=== PATIENT | female | born 1995 | race Caucasian/White ===

== ENCOUNTER 2018-05-11 14:54 | Inpatient (IN) | END 2018-05-14 16:19 | disposition home or self-care (01) | DRG 854 ==

== ENCOUNTER 2018-06-06 12:47 | Inpatient (IN) | END 2018-06-10 14:30 | disposition home or self-care (01) | DRG 357 ==

== ENCOUNTER 2018-07-13 11:30 | Emergency (ER) | payer OTHER ==
[~2018-07-13] VITALS: Wt 70.0 kg
[~2018-07-13 11:30] MED LIST: CIPR500T4 PO; HYDR-4011 PO; SECU150P2 SQ
[2018-07-13 11:35] VITALS: PULSE 94
--- NOTE | 2018-07-13 13:08 | ERD ---
ER Documentation Chief Complaint Chief Complaint S/P I&D ABCESS JUN 06 HAS OPEN WOUND NEEDS TO HAVE CHECK HPI 22-year-old female, with history of left gluteal abscess, status post post eveline gical incision and drainage on 06/06/[address] Escobar; presents to the emergency department, complaining of acute onset of yellowish discharge. The wound is healing by secondary intention, the patient has a nurse that performs wound care and packing every other day. She denies fevers, no chills, she is not taking any antibiotics at this time. ROS All systems reviewed and are negative except as per history of present illness. Medications Home Meds Active Scripts Ibuprofen* (Motrin*) 400 Mg Tab, 400 MG PO Q6H PRN for PAIN AND OR ELEVATED TEMP, #15 TAB Prov:JUAN JOSE LOVE MD 07/13/18 Fluconazole* (Diflucan*) 150 Mg Tablet, 150 MG PO ONCE, #1 TAB Prov:JUAN JOSE LOVE MD 07/13/18 Sulfamethoxazole/Trimethoprim* (Bactrim Ds* Tablet) 1 Each Tablet, 1 TAB PO BID, #14 TAB Prov:JUAN JOSE LOVE MD 07/13/18 Cephalexin* (Keflex*) 500 Mg Capsule, 500 MG PO BID for 7 Days, CAP Prov:JUAN JOSE LOVE MD 07/13/18 Ciprofloxacin Hcl* (Ciprofloxacin Hcl*) 500 Mg Tablet, 500 MG PO BID, #20 TAB Prov:WEBBISABELA VGamal MANAGER CHEMICAL 06/10/18 Hydrocodone/Acetaminophen ([place] 5-325 Tablet) 1 Each Tablet, 1 EACH PO Q6 for pain, #15 TAB Prov:ISABELA WEBB VGamal MANAGER CHEMICAL 06/09/18 Reported Medications Secukinumab (Cosentyx Pen) 150 Mg/1 Ml Pen.injctr, 150 MG SQ Q30D 06/05/18 Allergies Allergies: Coded Allergies: No Known Allergies (Verified Allergy, Unknown, 06/05/18) PMhx/Soc History of Surgery: Yes (removal of infected abscess April 2018) Anesthesia Reaction: No Hx Neurological Disorder: No Hx Respiratory Disorders: Yes (Asthma ) Hx Cardiac Disorders: No Hx Psychiatric Problems: No Hx Miscellaneous Medical Probl: No Hx Alcohol Use: Yes (socially ) Hx Substance Use: No Hx Tobacco Use: No FmHx Family History: No diabetes, No coronary disease Physical Exam Vitals Vital Signs Date Temp Pulse Resp B/P (MAP) Pulse Ox O2 O2 Flow FiO2 Time Delivery Rate 07/13/18 98.0 18 132/78 99 13:54 (96) 07/13/18 98.1 94 18 139/99 99 11:35 (112) Physical Exam Const: No acute distress Head: Atraumatic Eyes: Normal Conjunctiva ENT: Normal External Ears, Nose and Mouth. Neck: Full range of motion. No meningismus. Resp: Clear to auscultation bilaterally Cardio: Regular rate and rhythm, no murmurs Abd: Soft, non tender, non distended. Normal bowel sounds Skin: Left gluteal area: With wound clean and 90% closed, superficial packing in place, yellowish non-malodorous discharge noticed. No peripheral erythema, edema, tenderness or fluctuance. No petechiae or rashes Back: No midline or flank tenderness Ext: No cyanosis, or edema Neur: Awake and alert Psych: Normal Mood and Affect Procedures/MDM Status post incision and drainage approximately 1 month ago ago. Adequate pain control, no fever, no chills, acute yellowish non-malodorous discharge. The patient was evaluated for infection and neurovascular compromise. The wound was clean and irrigated with normal saline and packing applied. Patient is stable, the wound shows early signs of local infection, however, no e vidence of systemic compromise, Medication adherence reinforced. some side effects of prescribed medications (headache, rash, nausea, vomiting, diarrhea, drowsiness, habituation, bleeding, hypertension, interactions with other medications) were reviewed. The patient was instructed to follow up with the primary care provider in the next 48h. If symptoms persist, worsen or new symptoms develop, then patient should return to the ED immediately. Instructions explained and given directly by me to the patient with acknowledgment and demonstrated understanding. Disclaimer: Inadvertent spelling and grammatical errors are likely due to EHR/dictation software use and do not reflect on the overall quality of patient care. Also, please note that the electronic time recorded on this note does not necessarily reflect the actual time of the patient encounter. Departure Diagnosis: Primary Impression: Status post incision and drainage Additional Impression: Infected wound Condition: Stable Additional Instructions: Thank you very much for allowing us to participate in your care. Your health and safety is our top priority at [facility]. Call your primary care doctor TOMORROW for an appointment during the next 2-4 days and bring all the information and medications prescribed. Have prescriptions filled and follow precisely the directions on the label. If the symptoms get worse and your provider is unavailable, return to the Emergency Department immediately. JUAN JOSE LOVE MD Jul 13, 2018 13:08
[2018-07-13] MEDS ORDERED: CEPH-443 PO (13:37)
[2018-07-13] MEDS ORDERED: FLUC150T PO (13:37)
[2018-07-13] MEDS ORDERED: SULF1TAB31 PO (13:37)
[2018-07-13] MEDS ORDERED: IBUP-1561 PO (13:37)
[2018-07-13 13:54] VITALS: BP 132/78; RESP 18
== END 2018-07-13 13:55 | disposition home or self-care (01) ==
LOC: FTE 11:30
DX: S31.829A Unspecified open wound of left buttock, initial encounter (principal); J45.909 Unspecified asthma, uncomplicated; L08.9 Local infection of the skin and subcutaneous tissue, unspecified; X58.XXXA Exposure to other specified factors, initial encounter; Y92.9 Unspecified place or not applicable; Z48.817 Encounter for surgical aftercare following surgery on the skin and subcutaneous tissue
CPT/HCPCS: 99283

== ENCOUNTER 2018-09-02 09:28 | Day surgery (SDC) | payer OTHER ==
[~2018-09-02] VITALS: Ht 167.6 cm; Wt 85.3 kg
[2018-09-02] VITALS (25 sets, daily range): BP systolic 91–147; BP diastolic 54–97; PULSE 68–138; RESP 11–62; Ht 167.6 cm; Wt 85.3 kg
[~2018-09-02 09:28] MED LIST changes: +CEPH-443 PO; +FLUC150T PO; +IBUP-1561 PO; +SULF1TAB31 PO
[2018-09-02] MEDS ORDERED: CIPR500T4 PO (10:01)
[2018-09-02] MEDS ORDERED: HYDR-4011 PO (10:02)
[2018-09-02] MEDS ORDERED: [UNRECOGNIZED DRUG - CODE] PO (10:04)
[2018-09-02] MEDS ORDERED: BUPIVACAINE 0.5% (SDV) 30 ML INJ ONE (11:16)
[2018-09-02] MEDS ORDERED: LIDOCAINE 1% (MPF) 30 ML INJ ONE (11:16)
[2018-09-02] MEDS ORDERED: BUPIVACAINE 0.5%/EPI (SDV) 30 ML INJ ONE (11:16)
[2018-09-02] MEDS ORDERED: BUPIVACAINE 0.25% (MPF) 30 ML INJ ONE (11:16)
--- NOTE | 2018-09-02 11:26 | PREAC ---
Date/Time of Note Date/Time of Note DATE: 09/02/18 TIME: 11:25 Anesthesia Eval and Record Evaluation Time Pre-Procedure Interview DATE: 09/02/18 TIME: 11:25 Age 23 Sex female NPO: 8 hrs Preoperative diagnosis anal fistula Planned procedure proctosigmoidoscopy, seton placement Past Medical History Past Medical History: Includes Pulm: Asthma GI: Obesity Surgery & Anesthesia Issues No known issue Meds Anticoagulation: No Beta Angelito within 24 hr: No Reason Beta Angelito not given: Pt. not on B-Angelito Reported Medications Norethindrone-E.estradiol-Iron (Pqiisu-Nfzjqd-He 1-0.02(11)-75) 1 Each Tab.chew, 1 EACH PO DAILY, TAB.CHEW 09/02/18 Hydrocodone/Acetaminophen ([place] 5-325 Tablet) 1 Each Tablet, 1 EACH PO BID, TAB 09/02/18 Ciprofloxacin Hcl* (Ciprofloxacin Hcl*) 500 Mg Tablet, 500 MG PO BID, #14 TAB 09/02/18 Discontinued Reported Medications Secukinumab (Cosentyx Pen) 150 Mg/1 Ml Pen.injctr, 150 MG SQ Q30D 06/05/18 Discontinued Scripts Ibuprofen* (Motrin*) 400 Mg Tab, 400 MG PO Q6H PRN for PAIN AND OR ELEVATED TEMP, #15 TAB Prov:JUAN JOSE LOVE MD 07/13/18 Fluconazole* (Diflucan*) 150 Mg Tablet, 150 MG PO ONCE, #1 TAB Prov:JUAN JOSE LOVE MD 07/13/18 Sulfamethoxazole/Trimethoprim* (Bactrim Ds* Tablet) 1 Each Tablet, 1 TAB PO BID, #14 TAB Prov:JUAN JOSE LOVE MD 07/13/18 Cephalexin* (Keflex*) 500 Mg Capsule, 500 MG PO BID for 7 Days, CAP Prov:JUAN JOSE LOVE MD 07/13/18 Ciprofloxacin Hcl* (Ciprofloxacin Hcl*) 500 Mg Tablet, 500 MG PO BID, #20 TAB Prov:WEBBRAINEA V. RN INTEGRITY 06/10/18 Hydrocodone/Acetaminophen ([place] 5-325 Tablet) 1 Each Tablet, 1 EACH PO Q6 for pain, #15 TAB Prov:WEBB,ISABELA V. RN INTEGRITY 12/20/18 Meds reviewed: Yes Allergies Coded Allergies: No Known Allergies (Verified Allergy, Unknown, 09/02/18) Allergies Reviewed: Yes Labs/Studies Labs Reviewed: Reviewed by anesthesiologist test: Negative Pre-procedure Exam Last vitals Vital Signs Date Temp Pulse Resp B/P (MAP) Pulse Ox O2 O2 Flow FiO2 Time Delivery Rate 09/02/18 98.8 80 16 121/71 98 Room Air 10:48 (88) Airway: Adequate mouth opening, Adequate thyromental dist Mallampati: Mallampati II Teeth: Normal Lung: Normal Heart: Normal ASA Physical Status ASA physical status: 2 Emergency: None Planned Anesthetic General/MAC: LMA Planned Pain Management Parenteral pain med Pre-operative Attestations Prior to commencing anesthesia and surgery, the patient was re-evaluated, there was verification of: *The patient's identity *The results of appropriate recent lab work and preoperative vital signs *The above evaluation not changing prior to induction *Anesthetic plan, risk benefits, alternative and complications discussed with patient/family; questions answered; patient/family understands, accepts and wishes to proceed. HERMAN WATERS Sep 02, 2018 11:26
[2018-09-02] MEDS ORDERED: PROPOFOL 100 ML ONE (11:31)
--- NOTE | 2018-09-02 11:46 | HPN ---
Date/Time of Note Date/Time of Note DATE: 09/02/18 TIME: 11:46 Interval H&P Admission Note Pt. seen H&P reviewed: No system changes PARK BAER MD Sep 02, 2018 11:46
[2018-09-02] MEDS ORDERED: ONDANSETRON 4 MG INJ ONE (12:00)
[2018-09-02] MEDS ORDERED: DEXAMETHASONE 4 MG/ML 5 ML INJ ONE (12:00)
--- NOTE | 2018-09-02 12:39 | SIPON ---
Date/Time of Note Date/Time of Note DATE: 09/02/18 TIME: 12:38 Operative Report Preoperative Diagnosis Anal fistula Postoperative Diagnosis (same) Operation/Procedure Performed Proctosigmoidoscopy Placement of draining seton Surgeon see signature line medical clerical assistant n/a Anesthesia: general Estimated blood loss: minimal Transfusion Required none Specimen Fistula contents Grafts/Implants none Complications none PARK BAER MD Sep 02, 2018 12:39
--- NOTE | 2018-09-02 12:54 | PAC ---
Date/Time of Note Date/Time of Note DATE: 09/02/18 TIME: 12:53 Post-Anesthesia Notes Post-Anesthesia Note Last documented vital signs Vital Signs Date Temp Pulse Resp B/P (MAP) Pulse Ox O2 O2 Flow FiO2 Time Delivery Rate 09/02/18 98.8 80 16 121/71 98 Room Air 1254 (88) Activity: WNL Respiratory function: WNL Cardiovascular function: WNL Mental status: Baseline Pain reasonably controlled: Yes Hydration appropriate: Yes Nausea/Vomiting absent: Yes HERMAN WATERS Sep 02, 2018 12:54
[2018-09-02] MEDS ORDERED: EPHEDrine SULFATE 50 MG/5 ML SYG IV PRN (13:00)
[2018-09-02] MEDS ORDERED: MEPERIDINE 25 MG INJ IV PRN (13:00)
[2018-09-02] MEDS ORDERED: METOCLOPRAMIDE 10 MG INJ IV PRN (13:00)
[2018-09-02] MEDS ORDERED: HYDROmorphONE 1 MG/5 ML IV SYRINGE IV PRN ×3 (13:00)
[2018-09-02] MEDS ORDERED: ONDANSETRON 4 MG INJ IV PRN (13:00)
[2018-09-02] MEDS ORDERED: DIPHENHYDRAMINE 50 MG INJ IV PRN (13:00)
[2018-09-02] MEDS ORDERED: OXYCODONE/ACETAMINOPHEN (5/325) TAB PO PRN ×2 (13:00)
[2018-09-02] MEDS ORDERED: ALBUTEROL 0.083% (NEB) 2.5 MG/3 ML AMP HHN PRN (13:00)
[2018-09-02] MEDS ORDERED: LABETALOL HCL 20MG INJ IV PRN (13:00)
[2018-09-02] MEDS ORDERED: FENTAnyl 50 MCG/ML VIAL IV PRN ×3 (13:00)
[2018-09-02] MEDS ORDERED: hydrALAzine 20 MG INJ IV PRN (13:00)
[2018-09-02] MEDS ORDERED: KETOROLAC 30 MG INJ IV PRN (13:00)
[2018-09-02] MEDS ORDERED: ALBUTEROL 0.5% (NEB) 2.5 MG/0.5 ML AMP ONE (13:23)
[2018-09-02] MEDS ORDERED: MIDAZOLAM 1 MG/ML 2 ML INJ ONE (13:24)
--- NOTE | 2018-09-02 13:46 | OPPN ---
Date/Time of Note Date/Time of Note DATE: 09/02/18 TIME: 13:41 Anesthesia Follow up Anesthesia Follow up Last documented vital signs Vital Signs Date Temp Pulse Resp B/P (MAP) Pulse Ox O2 O2 Flow FiO2 Time Delivery Rate 09/02/18 70 12 102/58 99 nc 2l 1340 (73) 09/02/18 98.0 12:53 Respiratory function: WNL Cardiovascular function: WNL Comments called to pacu for patient with difficulty breathing. combination of hyperventilation with laryngospasm/bronchospasm most likely the cause. O2 by mask with albuterol treatment initiated and versed 2 mg ivp given with improvement in respiratory effort and normalization of vital signs. currently patient resting comfortably in no distress, vss. will continue to monitor. HERMAN WATERS Sep 02, 2018 13:46
--- NOTE | 2018-09-02 13:46 | OPR ---
DATE OF OPERATION: 09/02/2018 PREOPERATIVE DIAGNOSIS: Anal fistula. POSTOPERATIVE DIAGNOSIS: Anal fistula. PROCEDURES PERFORMED: 1. Rigid proctosigmoidoscopy. 2. Placement of draining seton. SURGEON: Dr. Park Wei MD ANESTHESIA: General anesthetic with LMA. INDICATIONS FOR PROCEDURE: Ms. Em is a 23-year-old female who has undergone multiple perianal i ncisions and drainage due to a chronically draining wound. It was suspected she has a fistula in ano , but thus far the previous surgeries were unsuccessful in finding an internal offending origin. I r ecommended she undergo an examination under anesthesia with placement of draining Seton within her fi stula tract. Informed consent was obtained prior to the procedure. DESCRIPTION OF PROCEDURE: The patient was brought to the operating room, placed in supine position o n the operating table. Next, after successful administration of general anesthetic and placement of an LMA she was repositioned in the lithotomy position using Vinh stirrups. After surgical time-out, a digital rectal examination was performed using lubricated finger. This examination revealed an op ening in the external perianal skin and the left posterior quadrant. There were no masses within the patient's anal canal or rectum, but there was a small amount of scarring in the anterior anal canal. Next, a rigid proctosigmoidoscopy was performed to a distance of 12 cm from the anal verge and this revealed a normal appearing rectum. The proctoscope was removed without event. Next, the patient's perineum and perianal skin were prepped and draped in the usual sterile fashion. Following this, an anal block was performed using combination of 1% lidocaine without epinephrine an d 0.5% Marcaine with epinephrine. This 50/50% combination of local anesthetic was utilized in such a fashion as to infiltrate the subcutaneous tissue circumferentially at the anal verge as well as the skin surrounding the external opening of the fistula tract in the left posterior perianal skin. Next , the Hwang retractors were utilized to examine the patient's anal canal and distal rectum in more d etail. The only abnormality noted was a small amount of scarring and a tiny tag within the anterior anal canal. Next, with the Hwang retractor in place, hydrogen peroxide was injected within the exte rnal opening of the anal canal and the left posterior perianal skin but no obvious internal opening w as identified. Next, a malleable probe was then passed from the external opening in the perianal ski n. There was an obvious tract toward the anterior anal canal right with scarring that had been palpa zahra. With the malleable probe, it was clear that this was the internal source of the fistula tract as a small paper thin layer of epidermis overlying the tip of the fistula probe. Bovie electrocautery was used to divide the small thin skin thus opening the internal opening of the fistula tract. The f istula probe was then replaced with 2-vessel loops which were tied to themselves using 0 silk suture. These would function as draining setons. The malleable probe was obviously removed and the specime n was taken of the fistula tract using a curet spoon and sent off as a surgical specimen labeled fist stephani contents. Additional local anesthetic that is the combination of lidocaine and Marcaine was inje cted at the external opening and internal opening of the fistula tract and the procedure was complete . The Hwang retractor was removed and dry gauze were applied to the patient's perianal skin and sec ured with paper tape. Next, the patient was turned in the supine position in the operating room, anesthesia discontinued an d she was extubated without complication. The patient was then transferred to recovery in stable con dition. Following the procedure, the patient was given standard post-anorectal surgery convalesce ins tructions was instructed to follow up with Dr. Wei in 1 week. The patient was also given prescripti ons for Toradol and [place] for pain. Dictated By: PARK HOBBS/GREGORIA Conf#: [id number] DID#: [id number] CC: ELMO SCHWARTZ M.D.;*End*
[2018-09-02] MEDS ORDERED: IPRATROPIUM (NEB) 0.5 MG/2.5 ML AMP INH ONE (14:00)
[2018-09-02] MEDS ORDERED: MIDAZOLAM 1 MG/ML 2 ML INJ IV PRN (14:00)
[2018-09-02] MEDS ORDERED: DEXAMETHASONE 4 MG/ML 1 ML INJ ONE (15:34)
[2018-09-02] MEDS ORDERED: DEXAMETHASONE 4 MG/ML 1 ML INJ IV ONE (16:00)
[2018-09-02] MEDS ORDERED: DEXAMETHASONE 10 MG/ML 1 ML INJ IV ONE (17:00)
== END 2018-09-02 18:53 | disposition home or self-care (01) ==
LOC: SDS 09:28
PROVIDERS: ATTEND Colon & Rectal Surgery
DX: K60.3 Anal fistula (principal); J45.909 Unspecified asthma, uncomplicated
CPT/HCPCS: 45300; 46270; 84703; 88304; J1100; J1200; J2250; J2405; J3010; Z7512; Z7610

== ENCOUNTER 2018-12-01 14:20 | Day surgery (SDC) | payer OTHER ==
[2018-12-01] VITALS (18 sets, daily range): BP systolic 107–149; BP diastolic 64–95; PULSE 56–124; RESP 14–31; Ht 165.1 cm; Wt 87.2 kg
[~2018-12-01] VITALS: Ht 165.1 cm; Wt 87.2 kg
[~2018-12-01 14:20] MED LIST changes: +CEFAZOLIN 2 GM/50 ML (PMX) 50 ML IVPB SCH; -CEPH-443 PO; -FLUC150T PO; -IBUP-1561 PO; +Metronidazole 500 MG in NS 100 ML IVPB SCH; -SECU150P2 SQ; -SULF1TAB31 PO; +[UNRECOGNIZED DRUG - CODE] PO
[2018-12-01] MEDS ORDERED: DEXAMETHASONE 4 MG/ML 5 ML INJ IVPB ONE (14:21)
[2018-12-01] MEDS ORDERED: ONDANSETRON 4 MG INJ IV ONE (14:21)
[2018-12-01] MEDS: LACTATED RINGER'S 1,000 ML IV SCH ×2 (15:22→17:49)
--- NOTE | 2018-12-01 16:21 | PREAC ---
Date/Time of Note Date/Time of Note DATE: 12/01/18 TIME: 16: Anesthesia Eval and Record Evaluation Time Pre-Procedure Interview DATE: 12/01/18 TIME: 16:19 Age 23 Sex female NPO: 8 hrs Preoperative diagnosis anal fistula Planned procedure PROCTOSIGMOIDOSCOPY,ANAL FISTULOTOMY Past Medical History Past Medical History: Includes Pulm: Asthma GI: Obesity Surgery & Anesthesia Issues No known issue Meds Anticoagulation: No Beta Angelito within 24 hr: No Reason Beta Angelito not given: Pt. not on B-Angelito Reported Medications Norethindrone-E.estradiol-Iron (Bmcutc-Imycyu-Df 1-0.02(26)-75) 1 Each Tab.chew, 1 EACH PO DAILY, TAB.CHEW 09/02/18 Hydrocodone/Acetaminophen ([place] 5-325 Tablet) 1 Each Tablet, 1 EACH PO BID, TAB 09/02/18 Ciprofloxacin Hcl* (Ciprofloxacin Hcl*) 500 Mg Tablet, 500 MG PO BID, #14 TAB 09/02/18 Current Medications Cefazolin Sodium/ Dextrose 50 ml @ 100 mls/hr ONCE IVPB ; Start 12/01/18 at 10:00; Stop 12/01/18 at 18:00 Metronidazole 100 ml @ 100 mls/hr ONCE IVPB ; Start 12/01/18 at 10:00; Stop 12/01/18 at 18:00 Lactated Ringer's 1,000 ml @ 25 mls/hr Q24H IV Last administered on 12/01/18at 15:22; Admin Dose 25 MLS/HR; Start 12/01/18 at 15:00; Stop 12/03/18 at 06:59 Meds reviewed: Yes Allergies Coded Allergies: No Known Allergies (Verified Allergy, Unknown, 12/01/18) Allergies Reviewed: Yes Labs/Studies Labs Reviewed: Reviewed by anesthesiologist test: Negative Pre-procedure Exam Last vitals Vital Signs Date Temp Pulse Resp B/P (MAP) Pulse Ox O2 O2 Flow FiO2 Time Delivery Rate 12/01/18 97.6 95 16 110/65 99 Room Air 15:17 (80) Airway: Adequate mouth opening Mallampati: Mallampati I Teeth: Normal Lung: Normal Heart: Normal ASA Physical Status ASA physical status: 2 Emergency: None Planned Anesthetic General/MAC: ETT Pre-operative Attestations Prior to commencing anesthesia and surgery, the patient was re-evaluated, there was verification of: *The patient's identity *The results of appropriate recent lab work and preoperative vital signs *The above evaluation not changing prior to induction *Anesthetic plan, risk benefits, alternative and complications discussed with patient/family; questions answered; patient/family understands, accepts and wishes to proceed. CLAY TADEO Dec 01, 2018 16:21
[2018-12-01] MEDS ORDERED: PROPOFOL 20 ML ONE (16:28)
[2018-12-01] MEDS ORDERED: FENTAnyl 50 MCG/ML VIAL ONE ×2 (16:29)
[2018-12-01] MEDS ORDERED: BUPIVACAINE 0.5% (SDV) 30 ML INJ ONE (16:37)
[2018-12-01] MEDS ORDERED: LIDOCAINE 1%/EPI 30 ML INJ ONE (16:38)
[2018-12-01] MEDS ORDERED: CEFAZOLIN 1 GM INJ ONE (17:23)
[2018-12-01] MEDS ORDERED: LIDOCAINE 2% (SDV) 5 ML INJ ONE (17:23)
[2018-12-01] MEDS ORDERED: metroNIDAZOLE 500 MG/NS (PMX) 100 ML IVPB ONE (17:24)
[2018-12-01] MEDS ORDERED: ROCURONIUM 50 MG INJ ONE (17:24)
[2018-12-01] MEDS ORDERED: GLYCOPYRROLATE 0.4 MG INJ ONE (17:28)
[2018-12-01] MEDS ORDERED: NEOSTIGMINE 3 MG/3 ML SYRINGE ONE (17:28)
[2018-12-01] MEDS ORDERED: MEPERIDINE 25 MG INJ ONE (17:40)
--- NOTE | 2018-12-01 17:40 | PAC ---
Date/Time of Note Date/Time of Note DATE: 12/01/18 TIME: 17:40 Post-Anesthesia Notes Post-Anesthesia Note Last documented vital signs Vital Signs Date Temp Pulse Resp B/P (MAP) Pulse Ox O2 O2 Flow FiO2 Time Delivery Rate 12/01/18 97.6 95 16 110/65 99 Room Air 1740 (80) Activity: WNL Respiratory function: WNL Cardiovascular function: WNL Mental status: Baseline Pain reasonably controlled: Yes Hydration appropriate: Yes Nausea/Vomiting absent: Yes HERMAN WATERS Dec 01, 2018 17:40
[2018-12-01] MEDS ORDERED: MEPERIDINE 25 MG INJ IV PRN (18:00)
[2018-12-01] MEDS ORDERED: DIPHENHYDRAMINE 50 MG INJ IV PRN (18:00)
[2018-12-01] MEDS ORDERED: MIDAZOLAM 1 MG/ML 2 ML INJ IV PRN (18:00)
[2018-12-01] MEDS ORDERED: hydrALAzine 20 MG INJ IV PRN (18:00)
[2018-12-01] MEDS ORDERED: FENTAnyl 50 MCG/ML VIAL IV PRN ×3 (18:00)
[2018-12-01] MEDS ORDERED: KETOROLAC 30 MG INJ IV PRN (18:00)
[2018-12-01] MEDS ORDERED: HYDROmorphONE 1 MG/5 ML IV SYRINGE IV PRN ×3 (18:00)
[2018-12-01] MEDS ORDERED: OXYCODONE/ACETAMINOPHEN (5/325) TAB PO PRN ×2 (18:00)
[2018-12-01] MEDS ORDERED: ONDANSETRON 4 MG INJ IV PRN (18:00)
[2018-12-01] MEDS ORDERED: METOCLOPRAMIDE 10 MG INJ IV PRN (18:00)
[2018-12-01] MEDS ORDERED: ALBUTEROL 0.083% (NEB) 2.5 MG/3 ML AMP HHN PRN (18:00)
[2018-12-01] MEDS ORDERED: EPHEDrine 25 MG/5 ML SYG IV PRN (18:00)
[2018-12-01] MEDS ORDERED: LABETALOL HCL 20MG INJ IV PRN (18:00)
--- NOTE | 2018-12-01 18:45 | OPR ---
DATE OF OPERATION: 12/01/2018 PREPROCEDURE DIAGNOSIS: Ktlirmh-sj-fwp. POSTPROCEDURE DIAGNOSIS: Left anterior myfnexb-qh-lhn. PROCEDURES PERFORMED: 1. Fistulotomy with placement of Seton for a transsphincteric yysdsvs-fq-unp. 2. Rigid proctosigmoidoscopy. SURGEON: Park Wei MD. TYPE OF ANESTHESIA: General endotracheal anesthesia. INDICATIONS FOR PROCEDURE: Ms. Em is a 23-year-old female, who previously was found to have a f czmqkn-gh-vem that was previously treated with a fistulotomy and drainage of abscess and placement of draining Seton. She now presents for definitive treatment of her fistula. Informed consent was obt ained prior to the procedure. PROCEDURE IN DETAIL: The patient was brought to the operating room, and while on the transportation gurney, general endotracheal anesthesia was established. Next, the patient was repositioned in the p kaylin jackknife position on the operating room table. Following this, the patient's buttocks were tap ed apart using the standard technique. A Surgical timeout was performed and the patient received per ioperative antibiotics. Next, a digital rectal examination was performed using lubricated finger. T his revealed a draining Seton extending from the patient's distal anterior anal canal to the left lat eral perianal skin. There are no masses in the patient's distal rectum. Next, a rigid proctosigmoid oscopy was performed to a distance of 12 cm from the anal verge and this revealed a normal appearing rectum. The proctoscope was removed without event. Next, the patient's perineum and perianal skin were prepped and draped in the usual sterile fashion. Following this, an anal block was performed using combination of 1% lidocaine with epinephrine and 0 .5% Marcaine without epinephrine. This 50/50% combination local anesthetic was utilized in such a fa shion as to infiltrate the subcutaneous tissue circumferentially at the anal verge. Next, once we ac hieved maximum anal sphincter relaxation, a Hwang retractors were utilized to examine the patient's anal canal and distal rectum in more detail. The only abnormality noted was the obvious eennggl-kx-y no with a draining Seton in place. With the Hwang in place, the hydrogen peroxide was injected thro ugh the external opening of the fistula tract where the Seton emerged and this confirmed a single ope rosie at the internal opening of the fistula in the mid distal anal canal where the Seton emerged inte rnally. Next, a fistula probe was passed from the external to internal opening of the fistula tract without difficulty. Following this, the skin overlying the fistula tract within the anal canal was d ivided, exposing a small portion of distal internal sphincter and a segment of distal external sphinc ter involved in the fistula tract. Bovie electrocautery was used to divide a tiny portion of interna l anal sphincter and a vessel loop was used x2 to wrap around the portion of external sphincter invol emely in the fistula tract, which was secured to itself using 0 silk sutures. The previous draining Se ton was removed and the fistula tract extending from this fistulotomy to the original external openin g was debrided using a curet spoon. Specimen from this fistula tract was retrieved with a curet spoo n and was sent off and labeled fistula contents. Once hemostasis was assured, additional local anest hetic that is the combination of lidocaine and Marcaine was utilized to anesthetize the skin edges callahan rrounding the fistulotomy, as well as the external opening of the fistula tract that have been debrid ed. Now, the procedure was complete, the Hwang retractor was removed. Dry gauze applied to the patient' s perianal skin and secured with paper tape. The patient was then returned to the supine position on the transportation gurney. Anesthesia was discontinued. The patient was extubated without complica tion. The patient was then transferred to recovery room in stable condition. Once there, she receiv ed standard post-anorectal surgery convalescent instructions as well as instructions to follow up raymond Wei 1 week following discharge. The patient was given prescriptions for Toradol and [place] for pain. Dictated By: PARK HOBBS/GREGORIA Conf#: [id number] DID#: [id number]
== END 2018-12-01 19:26 | disposition home or self-care (01) ==
LOC: SDS 14:20
PROVIDERS: ATTEND Colon & Rectal Surgery
DX: K60.3 Anal fistula (principal); J45.909 Unspecified asthma, uncomplicated
CPT/HCPCS: 46020; 46270; 88304; J0690; J1100; J2175; J2405; J2710; J2765; J3010; Z7512; Z7610